=== PATIENT | female | born 1995 | race Asian ===

== ENCOUNTER 2017-06-28 00:25 | Emergency (ER) | payer OTHER ==
[2017-06-28 01:46] VITALS: BP 92/66
--- NOTE | 2017-06-28 01:48 | ED ---
Eduardo Rose Thomas, scribed for Amna Keyes MD on 06/28/17 at 0138 . Laceration/Wound HPI - HPI Summary HPI Summary: The patient has a 0.5 cm laceration to the tip of her left thumb on the palmar surface. - History of Current Complaint Stated Complaint: LT THUMB LAC Time Seen by Provider: 06/28/17 01:22 Hx Obtained From: Patient Onset/Duration: Still Present Aggravating: Nothing Alleviating: Nothing Timing: Constant Onset Severity: Mild Current Severity: Mild Pain Intensity: 2 Pain Scale Used: 0-10 Numeric Associated Signs & Symptoms: Negative - fever - Allergy/Home Medications Allergies/Adverse Reactions: Allergies Allergy/AdvReac Type Severity Reaction Status Date / Time No Known Allergies Allergy Verified 06/28/17 00:30 PMH/Surg Hx/FS Hx/Imm Hx Sensory History: Denies: Hx Legally Blind EENT History: Denies: Hx Deafness Infectious Disease History: No Infectious Disease History: Denies: Traveled Outside the [place] in Last 30 Days - Family History Known Family History: Negative: Blood Disorder - Social History Alcohol Use: Rare Substance Use Type: Reports: None Smoking Status (MU): Never Smoked Tobacco Review of Systems Negative: Fever Positive: Other - Lac to tip of left thumb All Other Systems Reviewed And Are Negative: Yes Physical Exam - Summary Physical Exam Summary: VITAL SIGNS: Reviewed. GENERAL: Patient is a well-developed and nourished MALE who is lying comfortable in the stretcher. Patient is not in any acute respiratory distress. HEAD AND FACE: No signs of trauma. No ecchymosis, hematomas or skull depressions. No sinus tenderness. EYES: PERRLA, EOMI x 2, No injected conjunctiva, no nystagmus. EARS: Hearing grossly intact. Ear canals and tympanic membranes are within normal limits. MOUTH: Oropharynx within normal limits. NECK: Supple, trachea is midline, no adenopathy, no JVD, no carotid bruit, no c- spine tenderness, neck with full ROM. CHEST: Symmetric, no tenderness at palpation LUNGS: Clear to auscultation bilaterally. No wheezing or crackles. CVS: Regular rate and rhythm, S1 and S2 present, no murmurs or gallops appreciated. ABDOMEN: Soft, non-tender. No signs of distention. No rebound no guarding, and no masses palpated. Bowel sounds are normal. EXTREMITIES: FROM in all major joints, no edema, no cyanosis or clubbing. NEURO: Alert and oriented x 3. No acute neurological deficits. Speech is normal and follows commands. SKIN: The patient has a 0.5 cm laceration to the tip of her left thumb on the palmar surface. Triage Information Reviewed: Yes Vital Signs On Initial Exam: Initial Vitals Temp Pulse Resp BP Pulse Ox 98.5 F 95 16 99/68 100 06/28/17 00:27 06/28/17 00:27 06/28/17 00:27 06/28/17 00:06/28/17 00:27 Vital Signs Reviewed: Yes Procedures - Laceration/Wound Repair 1 Location: Other - 0.5 cm to tip of left thumb Description: Linear Length, Depth and Shape: Irriated with clean saline Closure: Skin Adhesive - Dermabond Diagnostics - Vital Signs Vital Signs Temp Pulse Resp BP Pulse Ox 06/28/17 00:27 98.5 F 95 16 99/68 100 - Laboratory Lab Statement: Any lab studies that have been ordered have been reviewed, and results considered in the medical decision making process. Laceration Repair Course/Dx - Course Assessment/Plan: The patient has a 0.5 cm laceration to the tip of her left thumb on the palmar surface. The laceration was cleaned with normal saline and glue Dermabond was applied. Patient will be discharged home. - Clinical Impression Provider Diagnoses: Finger laceration Discharge - Discharge Plan Condition: Stable Disposition: HOME Patient Education Materials: Finger Laceration (ED) Referrals: [facility] - Anuel COFFMAN [Primary Care Provider] - 7 Days Additional Instructions: Return to the emergency department for any new or worsening symptoms. The documentation as recorded by the Eduardo mcfarlane Thomas accurately reflects the service I personally performed and the decisions made by Stephy urbina Abdul, MD.
== END 2017-06-28 01:46 | disposition home or self-care (01) ==
LOC: ED 00:25
DX: S61.012A Laceration without foreign body of left thumb without damage to nail, initial encounter (principal); X58.XXXA Exposure to other specified factors, initial encounter; Y92.9 Unspecified place or not applicable
CPT/HCPCS: 12001; 99282